=== PATIENT | male | born 1965 | race African-American/Black ===

== ENCOUNTER 2018-04-04 10:01 | Inpatient (IN) | payer SELFPAY ==
[2018-04-04 11:18] LABS: ABSOLUTE BASOPHILS # (AUTO) 0.1 10^3/uL (0.0-0.2); ABSOLUTE EOSINOPHILS # (AUTO) 0.2 10^3/uL (0.0-0.6); ABSOLUTE MONOCYTES (AUTO) 0.6 10^3/uL (0.1-1.4); ABSOLUTE NEUT (AUTO) 4.7 10^3/uL (1.7-8.2); BASOPHILS % (AUTO) 1.8 % (0-2); EOSINOPHILS % (AUTO) 2.8 % (0-6); HEMATOCRIT 34.7 % (37.9-51.0); HEMOGLOBIN 11.8 g/dL (13.5-17.0); LYMPHOCYTES % (AUTO) 26.6 % (13-45); MEAN CORPUSCULAR HEMOGLOBIN 35.3 pg (27.0-33.4); MEAN CORPUSCULAR HGB CONC 34.1 g/dL (32.0-36.0); MEAN CORPUSCULAR VOLUME 104 fl (80-97); MONOCYTES % (AUTO) 7.8 % (3-13); PLATELET COUNT 191 10^3/uL (150-450); RED BLOOD COUNT 3.35 10^6/uL (4.35-5.55); RED CELL DISTRIBUTION WIDTH 13.1 % (11.5-14.0); TOTAL CELLS COUNTED % (AUTO) 100 %; WHITE BLOOD COUNT 7.7 10^3/uL (4.0-10.5)
[2018-04-04] MEDS: 1/2 NORMAL SALINE 1,000 ML IV PRN (11:29)
[2018-04-04] MEDS ORDERED: AMPICILLIN SODIUM/SULBACTAM NA 3 GM in NORMAL SALINE 100 ML IV PRN (11:30)
[2018-04-04 11:41] LABS: ALANINE AMINOTRANSFERASE 20 U/L (21-72); ALKALINE PHOSPHATASE 75 U/L (38-126); ANION GAP 10 (5-19); ASPARTATE AMINO TRANSFERASE 32 U/L (17-59); BILIRUBIN,DIRECT 0.2 mg/dL (0.0-0.4); BILIRUBIN,TOTAL 0.3 mg/dL (0.2-1.3); BLOOD UREA NITROGEN 58 mg/dL (7-20); CALCIUM 9.4 mg/dL (8.4-10.2); CARBON DIOXIDE 19 mmol/L (22-30); CHLORIDE 112 mmol/L (98-107); GLUCOSE 204 mg/dL (75-110); POTASSIUM 5.1 mmol/L (3.6-5.0); SODIUM 140.9 mmol/L (137-145); TOTAL PROTEIN 7.3 g/dL (6.3-8.2)
[2018-04-04 12:13] LABS: APPEARANCE,URINE CLEAR; BILIRUBIN,URINE NEGATIVE (NEGATIVE); COLOR,URINE STRAW; GLUCOSE, URINE >=500 mg/dL (NEGATIVE); KETONES,URINE NEGATIVE (NEGATIVE); LEUKOCYTE ESTERASE,URINE NEGATIVE (NEGATIVE); NITRITE,URINE NEGATIVE (NEGATIVE); PROTEIN,URINE NEGATIVE (NEGATIVE); URINE SPECIFIC GRAVITY 1.012; UROBILINOGEN,URINE NEGATIVE mg/dL (<2.0)
--- NOTE | 2018-04-04 15:25 | PDOC CONSULTATION ---
Consultation Consult Date: 04/04/18 Attending physician:: marcelino Consult reason:: diabetes managment History of Present Illness Admission Date/PCP: 04/04/18 10:01 TAMELA MOELLER PA-C History of Present Illness: KHOA ANTONIO is a 52 year old black male patient admitted by Dr. Alvarado Haney vascular surgeon for left foot ulcer. Patient is a known case of diabetes mellitus which is uncontrolled evidenced by hemoglobin A1c of 12.8 and at admission his blood blood sugar was 445. [facility] service is consulted to manage his diabetes. Past Medical History Cardiac Medical History: Reports: Hypertension Endocrine Medical History: Reports: Diabetes Mellitus Type 2 Psychiatric Medical History: Denies: Depression Social History Smoking Status: Current Every Day Smoker Cigarettes Packs Per Day: 1 Frequency of Alcohol Use: None Hx Recreational Drug Use: No Drugs: None Hx Prescription Drug Abuse: No - Advance Directive Resuscitation Status: Full Code Family History Family History: Reviewed & Not Pertinent Parental Family History Reviewed: Yes Children Family History Reviewed: Yes Sibling(s) Family History Reviewed.: Yes Medication/Allergy Home Medications: Glimepiride [Amaryl 4 mg Tablet] 4 mg PO BID MDD FILLED 12/27/16 04/04/18 Lisinopril [Lisinopril] 20 mg PO DAILY 04/04/18 Pioglitazone HCl [Actos 15 mg Tablet] 15 mg PO DAILY 04/04/18 Sitagliptin Phosphate [Januvia 25 mg Tablet] 25 mg PO DAILY MDD LAST FILLED IN 201604/04/18 Allergies/Adverse Reactions: No Known Allergies Allergy (Verified 06/17/15 02:33) Review of Systems Constitutional: ABSENT: chills, fever(s), headache(s), weight gain, weight loss Eyes: ABSENT: visual disturbances Ears: ABSENT: hearing changes Cardiovascular: ABSENT: chest pain, dyspnea on exertion, edema, orthropnea, palpitations Respiratory: ABSENT: cough, hemoptysis Gastrointestinal: ABSENT: abdominal pain, constipation, diarrhea, hematemesis, hematochezia, nausea, vomiting Genitourinary: ABSENT: dysuria, hematuria Musculoskeletal: ABSENT: joint swelling Integumentary: ABSENT: rash, wounds Neurological: ABSENT: abnormal gait, abnormal speech, confusion, dizziness, focal weakness, syncope Psychiatric: ABSENT: anxiety, depression, homidical ideation, suicidal ideation Endocrine: ABSENT: cold intolerance, heat intolerance, polydipsia, polyuria Hematologic/Lymphatic: ABSENT: easy bleeding, easy bruising Physical Exam Vital Signs: Temp Pulse Resp BP Pulse Ox 97.7 F 88 18 146/61 H 100 04/04/18 12:08 04/04/18 14:00 04/04/18 12:08 04/04/18 12:08 04/04/18 12:08 Intake & Output 04/03/18 04/04/18 04/05/18 06:59 06:59 06:59 Intake Total 100 Balance 100 Weight 77.27 kg General appearance: PRESENT: no acute distress Head exam: PRESENT: atraumatic Mouth exam: PRESENT: moist Neck exam: ABSENT: carotid bruit, JVD, lymphadenopathy, thyromegaly Respiratory exam: PRESENT: clear to auscultation tatiana. ABSENT: rales, rhonchi, wheezes Cardiovascular exam: PRESENT: RRR. ABSENT: diastolic murmur, rubs, systolic murmur GI/Abdominal exam: PRESENT: normal bowel sounds, soft. ABSENT: distended, guarding, mass, organolmegaly, rebound, tenderness Extremities exam: PRESENT: other - There is small deroofed blister on the left big toe Neurological exam: PRESENT: alert, awake Results Laboratory Results: 04/04/18 11:04 04/04/18 11:04 04/04/18 04/04/18 04/04/18 11:04 11:04 11:53 WBC 7.7 RBC 3.35 L Hgb 11.8 L Hct 34.7 L MCV 104 H MCH 35.3 H MCHC 34.1 RDW 13.1 Plt Count 191 Seg Neutrophils % 61.0 Lymphocytes % 26.6 Monocytes % 7.8 Eosinophils % 2.8 Basophils % 1.8 Absolute Neutrophils 4.7 Absolute Lymphocytes 2.0 Absolute Monocytes 0.6 Absolute Eosinophils 0.2 Absolute Basophils 0.1 Sodium 140.9 Potassium 5.1 H Chloride 112 H Carbon Dioxide 19 L Anion Gap 10 BUN 58 H Creatinine 3.80 H Est GFR ( Amer) 20 L Est GFR (Non-Af Amer) 17 L Glucose 204 H Calcium 9.4 Total Bilirubin 0.3 AST 32 ALT 20 L Alkaline Phosphatase 75 Total Protein 7.3 Albumin 4.0 Urine Color STRAW Urine Appearance CLEAR Urine pH 5.0 Ur Specific [place] 1.012 Urine Protein NEGATIVE Urine Glucose (UA) >=500 H Urine Ketones NEGATIVE Urine Blood NEGATIVE Urine Nitrite NEGATIVE Ur Leukocyte Esterase NEGATIVE Urine WBC (Auto) 2 Urine RBC (Auto) 0 Assessment & Plan - Diagnosis (1) Uncontrolled type 2 diabetes mellitus Is this a current diagnosis for this admission?: Yes Plan: Patient received counseling regarding the complications of diabetes mellitus and patient so advised her to comply with his medication and follow-up appointments. I will continue his home medications and I will start him on sliding scale. (2) Tobacco abuse Is this a current diagnosis for this admission?: Yes Plan: Patient counseled and encouraged to quit smoking.
[2018-04-04] MEDS ORDERED: DEXTROSE 50%-WATER 25 GM/50 ML DISP.SYRIN IV PRN ×2 (15:28)
[2018-04-04] MEDS ORDERED: DEXTROSE 40% GEL 15 GM TUBE PO PRN ×2 (15:28)
[2018-04-04] MEDS ORDERED: GLUCAGON,HUMAN RECOMB 1 MG INJ IM PRN (15:28)
[2018-04-04] MEDS ORDERED: INSULIN LISPRO 100 UNIT/ML 3 ML VIAL SUBCUT PRN (15:28)
[2018-04-04] MEDS: AMPICILLIN SODIUM/SULBACTAM NA 3 GM in NORMAL SALINE 100 ML IV SCH ×2 (17:02→23:33)
[2018-04-04] MEDS ORDERED: INSULIN GLARGINE,HUM.REC.ANLOG 300 UNIT/3 ML INSULN.PEN SUBCUT SCH (22:00)
[2018-04-05] MEDS: AMPICILLIN SODIUM/SULBACTAM NA 3 GM in NORMAL SALINE 100 ML IV SCH ×4 (05:09→23:39)
[2018-04-05] MEDS ORDERED: INSULIN GLARGINE,HUM.REC.ANLOG 300 UNIT/3 ML INSULN.PEN SUBCUT SCH (08:23)
[2018-04-05 09:58] LABS: MEAN CORPUSCULAR HEMOGLOBIN 35.8 pg (27.0-33.4); MEAN CORPUSCULAR HGB CONC 34.3 g/dL (32.0-36.0); MEAN CORPUSCULAR VOLUME 104 fl (80-97); RED BLOOD COUNT 3.37 10^6/uL (4.35-5.55); RED CELL DISTRIBUTION WIDTH 13.4 % (11.5-14.0); WHITE BLOOD COUNT 7.3 10^3/uL (4.0-10.5)
[2018-04-05 09:59] LABS: ABSOLUTE BASOPHILS # (AUTO) 0.1 10^3/uL (0.0-0.2); ABSOLUTE EOSINOPHILS # (AUTO) 0.2 10^3/uL (0.0-0.6); ABSOLUTE LYMPHOCYTES (AUTO) 1.6 10^3/uL (0.5-4.7); ABSOLUTE MONOCYTES (AUTO) 0.5 10^3/uL (0.1-1.4); BASOPHILS % (AUTO) 1.2 % (0-2); EOSINOPHILS % (AUTO) 2.5 % (0-6); LYMPHOCYTES % (AUTO) 21.2 % (13-45); MONOCYTES % (AUTO) 7.4 % (3-13); PLATELET COUNT 191 10^3/uL (150-450); SEGMENTED NEUTROPHILS % (AUTO) 67.7 % (42-78); TOTAL CELLS COUNTED % (AUTO) 100 %
[2018-04-05 10:09] LABS: ANION GAP 11 (5-19); BLOOD UREA NITROGEN 53 mg/dL (7-20); CALCIUM 9.4 mg/dL (8.4-10.2); CARBON DIOXIDE 16 mmol/L (22-30); CHLORIDE 115 mmol/L (98-107); GLUCOSE 142 mg/dL (75-110); POTASSIUM 5.7 mmol/L (3.6-5.0); SODIUM 142.3 mmol/L (137-145)
--- NOTE | 2018-04-05 10:57 | PDOC PROGRESS REPORT ---
Subjective Progress Note for:: 04/05/18 Subjective:: I seen patient sitting by the bedside. He is awake alert and oriented. He is not in pain or distress. Yesterday night he was given Lantus insulin 15 units and he develop severe hypoglycemia with blood glucose of 38. His BMP shows also stage III CKD with creatinine of 3.8 and BUN of 50. Patient is aware of his chronic kidney disease but he does not have follow-up with [facility] stack[facility]. His home medication has been reconciled. Reason For Visit: ICD 10 CODES:201.818 E10.62 I10 E11.9 Z72.0 Physical Exam Vital Signs: Temp Pulse Resp BP Pulse Ox 98.0 F 92 16 109/73 99 04/05/18 07:41 04/05/18 07:41 04/05/18 07:41 04/05/18 07:41 04/05/18 07:41 Intake & Output 04/04/18 04/05/18 04/06/18 06:59 06:59 06:59 Intake Total 637 Output Total 1075 Balance -438 Weight 75.1 kg General appearance: PRESENT: no acute distress Head exam: PRESENT: atraumatic Eye exam: PRESENT: conjunctiva pink Mouth exam: PRESENT: moist Respiratory exam: PRESENT: clear to auscultation tatiana. ABSENT: rales, rhonchi, wheezes Cardiovascular exam: PRESENT: RRR. ABSENT: diastolic murmur, rubs, systolic murmur GI/Abdominal exam: PRESENT: normal bowel sounds, soft. ABSENT: distended, guarding, mass, organolmegaly, rebound, tenderness Neurological exam: PRESENT: alert, awake, oriented to time, oriented to situation Results Laboratory Results: 04/05/18 09:00 04/05/18 09:00 04/04/18 04/04/18 04/04/18 11:04 11:04 11:53 WBC 7.7 RBC 3.35 L Hgb 11.8 L Hct 34.7 L MCV 104 H MCH 35.3 H MCHC 34.1 RDW 13.1 Plt Count 191 Seg Neutrophils % 61.0 Lymphocytes % 26.6 Monocytes % 7.8 Eosinophils % 2.8 Basophils % 1.8 Absolute Neutrophils 4.7 Absolute Lymphocytes 2.0 Absolute Monocytes 0.6 Absolute Eosinophils 0.2 Absolute Basophils 0.1 Sodium 140.9 Potassium 5.1 H Chloride 112 H Carbon Dioxide 19 L Anion Gap 10 BUN 58 H Creatinine 3.80 H Est GFR ( Amer) 20 L Est GFR (Non-Af Amer) 17 L Glucose 204 H Calcium 9.4 Total Bilirubin 0.3 AST 32 ALT 20 L Alkaline Phosphatase 75 Total Protein 7.3 Albumin 4.0 Urine Color STRAW Urine Appearance CLEAR Urine pH 5.0 Ur Specific [place] 1.012 Urine Protein NEGATIVE Urine Glucose (UA) >=500 H Urine Ketones NEGATIVE Urine Blood NEGATIVE Urine Nitrite NEGATIVE Ur Leukocyte Esterase NEGATIVE Urine WBC (Auto) 2 Urine RBC (Auto) 0 04/05/18 04/05/18 09:00 09:00 WBC 7.3 RBC 3.37 L Hgb 12.0 L Hct 35.0 L MCV 104 H MCH 35.8 H MCHC 34.3 RDW 13.4 Plt Count 191 Seg Neutrophils % 67.7 Lymphocytes % 21.2 Monocytes % 7.4 Eosinophils % 2.5 Basophils % 1.2 Absolute Neutrophils 5.0 Absolute Lymphocytes 1.6 Absolute Monocytes 0.5 Absolute Eosinophils 0.2 Absolute Basophils 0.1 Sodium 142.3 Potassium 5.7 H Chloride 115 H Carbon Dioxide 16 L Anion Gap 11 BUN 53 H Creatinine 3.40 H Est GFR ( Amer) 23 L Est GFR (Non-Af Amer) 19 L Glucose 142 H Calcium 9.4 Total Bilirubin AST ALT Alkaline Phosphatase Total Protein Albumin Urine Color Urine Appearance Urine pH Ur Specific [place] Urine Protein Urine Glucose (UA) Urine Ketones Urine Blood Urine Nitrite Ur Leukocyte Esterase Urine WBC (Auto) Urine RBC (Auto) Assessment & Plan - Diagnosis (1) Uncontrolled type 2 diabetes mellitus Is this a current diagnosis for this admission?: Yes Plan: Patient received counseling regarding the complications of diabetes mellitus and patient so advised her to comply with his medication and follow-up appointments. I will continue his home medications and I will start him on sliding scale. She will I started him on Lantus 15 units subcu since he developed severe hypoglycemia I discontinued that. (2) Tobacco abuse Is this a current diagnosis for this admission?: Yes Plan: Patient counseled and encouraged to quit smoking. (3) Chronic renal disease, stage IV Is this a current diagnosis for this admission?: Yes Plan: Patient strongly advised to avoid nephrotoxic agents especially pain medication available [id number] like naproxen and Motrin. He is also advised to have follow-up with [facility].
[2018-04-05] MEDS: PIOGLITAZONE HCL 15 MG TABLET PO SCH (10:59)
[2018-04-05] MEDS: GLIMEPIRIDE 4 MG TABLET PO SCH ×3 (10:59→18:55)
[2018-04-05] MEDS ORDERED: RINGERS SOLUTION,LACTATED 1,000 ML IV ONE (17:00)
[2018-04-05] MEDS ORDERED: PATIROMER 8.4 GM SUSP PACKET PO ONE (19:15)
--- NOTE | 2018-04-05 19:27 | PDOC CONSULTATION ---
Consultation Consult Date: 04/05/18 Attending physician:: JC NEELY Consult reason:: I was asked by Dr. Neely to see this patient because of chronic kidney disease. History of Present Illness Admission Date/PCP: 04/04/18 10:01 TAMELA MOELLER PA-C History of Present Illness: KHOA ANTONIO is a 52 year old -[place] male with history of diabetes mellitus type 2 and hypertension who was admitted by Dr. Neely because of left foot ulcer currently on IV antibiotics. Routine labs on admission shows an elevated BUN of 58 and elevated creatinine of 3.8 with estimated GFR of 20. Today he has a BUN of 53 and creatinine of 3.4 with EGFR of 23. His nurse, Rachel today was able to speak to his folder inspector Dr. Carrasquillo from [facility] and she was told that his baseline creatinine was actually 3.3 in January 2018 and prior to that was 3.7. In November 2015 he had a BUN of 27 and creatinine of 1.85 with estimated GFR 47. Apparently the patient was told that he has abnormal kidney function but has declined consultation with a parquetry layer. Today the patient's potassium is also elevated at 5.7 and his CO2 is 16. Patient has on and off leg swelling and on and off diarrhea. He denies any NSAIDs use or abuse no history of hepatitis. He states that he has diabetes mellitus type 2 for 12 years and it seems like at one point it was uncontrolled for his hemoglobin A1c was 12.8 in 2015 that was recorded here in the hospital. Currently his hemoglobin A1c is 5.7. His urinalysis showed more than 500 of glucose but no significant protein nor blood. He reports drinking a lot of fluids and not eating too much salt. He claims that he is following his diabetic diet. He does eat meats a lot including chicken turkey and other meats. He has good appetite and denies any nausea, vomiting or abnormal fatigue. He also denies any chest pains no shortness of breath. Past Medical History Cardiac Medical History: Reports: Hypertension-primary Endocrine Medical History: Reports: Diabetes Mellitus Type 2 Past Surgical History Past Surgical History: Reports: Other - Groin cyst excision Social History Information Source: Patient Lives with: Family Smoking Status: Current Every Day Smoker Cigarettes Packs Per Day: 0.7 Frequency of Alcohol Use: None Hx Recreational Drug Use: No Drugs: None Hx Prescription Drug Abuse: No - Advance Directive Resuscitation Status: Full Code Family History Family History: DM - Parents, Hypertension - Parents, Malignancy - Mother of leukemia Parental Family History Reviewed: Yes Children Family History Reviewed: Yes Sibling(s) Family History Reviewed.: Yes Medication/Allergy Home Medications: Glimepiride [Amaryl 4 mg Tablet] 4 mg PO BID MDD FILLED 12/27/16 04/04/18 Lisinopril [Lisinopril] 20 mg PO DAILY 04/04/18 Pioglitazone HCl [Actos 15 mg Tablet] 15 mg PO DAILY 04/04/18 Sitagliptin Phosphate [Januvia 25 mg Tablet] 25 mg PO DAILY MDD LAST FILLED IN 201604/04/18 Allergies/Adverse Reactions: No Known Allergies Allergy (Verified 06/17/15 02:33) Review of Systems All systems: reviewed and no additional remarkable complaints except as stated Review of Systems: Constitutional: [ABSENT: chills, fatigue, fever(s), headache(s), weight gain, weight loss] Eyes: [ABSENT: visual disturbances] Ears:[ ABSENT: hearing changes] Cardiovascular: [ABSENT: chest pain, dyspnea on exertion, orthropnea, palpitations; admits to occasional edema] Respiratory: [ABSENT: cough, dyspnea, hemoptysis] Gastrointestinal: [ABSENT: abdominal pain, constipation, hematemesis, hematochezia, nausea, vomiting; admits on and off diarrhea] Genitourinary: [ABSENT: dysuria, hematuria] Musculoskeletal: [ABSENT: joint swelling] Integumentary:[ ABSENT: rash, wounds] Neurological: [ABSENT: abnormal gait, abnormal speech, confusion, dizziness, focal weakness, numbness, syncope] Psychiatric: [ABSENT: anxiety, depression] Endocrine:[ ABSENT: cold intolerance, heat intolerance, polydipsia, polyuria] Hematologic/Lymphatic: [ABSENT: easy bleeding, easy bruising, lymphadenopathy] Physical Exam Vital Signs: Temp Pulse Resp BP Pulse Ox 98.5 F 85 12 153/65 H 96 04/05/18 15:44 04/05/18 15:44 04/05/18 15:44 04/05/18 15:44 04/05/18 15:44 Intake & Output 04/04/18 04/05/18 04/06/18 06:59 06:59 06:59 Intake Total 637 1040 Output Total 1075 400 Balance -438 640 Weight 75.1 kg Exam: General appearance: No acute distress, cooperative, well-developed, well- nourished Head exam: PRESENT: atraumatic, normocephalic Eye exam: PRESENT: Conjunctiva [place], EOMI, PERRLA. ABSENT: conjunctival injection, scleral icterus Mouth exam: PRESENT: moist, neck supple, tongue midline Neck exam: PRESENT: full ROM. ABSENT: carotid bruit, JVD, lymphadenopathy, thyromegaly Respiratory exam: PRESENT: clear to auscultation bilaterally. ABSENT: rales, rhonchi, stridor, wheezes Cardiovascular exam: PRESENT: RRR, +S1, +S2. ABSENT: systolic murmur Pulses: PRESENT: normal radial pulses, normal dorsalis pedis pulses GI/Abdominal exam: PRESENT: normal bowel sounds, soft. ABSENT: guarding, mass, tenderness Rectal exam: Deferred Extremities exam: PRESENT: full ROM. ABSENT: calf tenderness, pedal edema Musculoskeletal: PRESENT: full ROM. ABSENT: deformity Neurological exam: PRESENT: alert, Awake, Oriented to person, Oriented to place , Oriented to time, reflexes normal, CN II-XII grossly intact. ABSENT: motor sensory deficit Psychiatric exam: PRESENT: appropriate affect, normal mood. ABSENT: homicidal ideation, suicidal ideation Skin exam: PRESENT: intact, dry, warm. ABSENT: rash Results Laboratory Results: 04/05/18 09:00 04/05/18 09:00 04/05/18 04/05/18 09:00 09:00 WBC 7.3 RBC 3.37 L Hgb 12.0 L Hct 35.0 L MCV 104 H MCH 35.8 H MCHC 34.3 RDW 13.4 Plt Count 191 Seg Neutrophils % 67.7 Lymphocytes % 21.2 Monocytes % 7.4 Eosinophils % 2.5 Basophils % 1.2 Absolute Neutrophils 5.0 Absolute Lymphocytes 1.6 Absolute Monocytes 0.5 Absolute Eosinophils 0.2 Absolute Basophils 0.1 Sodium 142.3 Potassium 5.7 H Chloride 115 H Carbon Dioxide 16 L Anion Gap 11 BUN 53 H Creatinine 3.40 H Est GFR ( Amer) 23 L Est GFR (Non-Af Amer) 19 L Glucose 142 H Calcium 9.4 Assessment & Plan - Diagnosis (1) Chronic kidney disease (CKD), stage IV (severe) Is this a current diagnosis for this admission?: Yes Plan: In the background of diabetes mellitus type 2 which was previously uncontrolled and currently controlled and hypertension. This seems to be progressive for the last several years. We will send workup for complications of chronic kidney disease. I educated the patient in the presence of his and son regarding chronic kidney disease, its implications and possibly leading to end-stage renal disease requiring hemodialysis at one point. Also discussed his complications and ways to slow down progression of kidney disease. Advised adequate fluid intake and avoidance of any nephrotoxic medications including nonsteroidal anti- inflammatory medications. Advised compliance with low-salt and diabetic diet as well as low protein diet. I briefly explained what dialysis does and when it is needed to be done. Currently he does not need any renal replacement therapy to be initiated. Continue lisinopril. We will check his kidney ultrasound, phosphorus, intact PTH, 25-hydroxy vitamin D, and urine microalbumin to creatinine ratio. (2) Hyperkalemia Is this a current diagnosis for this admission?: Yes Plan: Advised low potassium diet. We will give 1 dose of [place] 16.4 gm tonight. (3) Anemia in chronic kidney disease (CKD) Is this a current diagnosis for this admission?: Yes Plan: We will check iron panel. (4) Metabolic acidosis Is this a current diagnosis for this admission?: Yes Plan: Start sodium bicarbonate 650 mg p.o. twice daily. (5) Diabetes mellitus type 2 with complications Is this a current diagnosis for this admission?: Yes Plan: Well-controlled. (6) Foot ulcer, left Is this a current diagnosis for this admission?: Yes Plan: Defer to Dr. Neely. - Notes Notes: Thank you very much for this consultation. Assessment and plan discussed with the patient and his family at bedside as well as his nurse chris. - Time Time Spent: Greater than 70 Minutes
[2018-04-05] MEDS: SODIUM BICARBONATE 650 MG TABLET PO SCH (20:34)
--- NOTE | 2018-04-06 00:38 | RADIOLOGY REPORT (SQ) ---
EXAM DESCRIPTION: US RETROPERITONEUM LIMITED COMPLETED DATE/TME: 04/05/2018 00:00 CLINICAL HISTORY: 52 years Male, CKD Comparison: None. LIMITATIONS: None. FINDINGS: Indeterminate 1.8 x 1.6 x 1.8 cm avascular complex low-attenuation exophytic lesion of the upper pole, right kidney. 12-cm right kidney, 12-cm left kidney, and urinary bladder with demonstrated bilateral ureteral jet flow appear otherwise of normal size, shape, echotexture, and vascularity. IMPRESSION: Indeterminate 1.8 cm right renal lesion; recommend multiphase contrast CT or MRI of the kidneys.
[2018-04-06] MEDS: 1/2 NORMAL SALINE 1,000 ML IV PRN (02:32)
[2018-04-06] MEDS: SODIUM BICARBONATE 650 MG TABLET PO SCH ×2 (02:32→10:46)
[2018-04-06] MEDS: AMPICILLIN SODIUM/SULBACTAM NA 3 GM in NORMAL SALINE 100 ML IV SCH ×2 (05:01→13:06)
[2018-04-06 05:52] LABS: ABSOLUTE BASOPHILS # (AUTO) 0.1 10^3/uL (0.0-0.2); ABSOLUTE EOSINOPHILS # (AUTO) 0.2 10^3/uL (0.0-0.6); ABSOLUTE LYMPHOCYTES (AUTO) 1.7 10^3/uL (0.5-4.7); ABSOLUTE MONOCYTES (AUTO) 0.5 10^3/uL (0.1-1.4); ABSOLUTE NEUT (AUTO) 3.7 10^3/uL (1.7-8.2); ABSOLUTE RETICS # 0.078 10^6/uL (0.028-0.122); BASOPHILS % (AUTO) 1.3 % (0-2); EOSINOPHILS % (AUTO) 3.8 % (0-6); HEMATOCRIT 35.8 % (37.9-51.0); HEMOGLOBIN 12.5 g/dL (13.5-17.0); MEAN CORPUSCULAR HEMOGLOBIN 35.9 pg (27.0-33.4); MEAN CORPUSCULAR HGB CONC 34.9 g/dL (32.0-36.0); MEAN CORPUSCULAR VOLUME 103 fl (80-97); PLATELET COUNT 193 10^3/uL (150-450); RED BLOOD COUNT 3.49 10^6/uL (4.35-5.55); RED CELL DISTRIBUTION WIDTH 13.3 % (11.5-14.0); RETICULOCYTE COUNT (AUTO) 2.24 % (0.66-2.85); SEGMENTED NEUTROPHILS % (AUTO) 58.9 % (42-78); TOTAL CELLS COUNTED % (AUTO) 100 %; WHITE BLOOD COUNT 6.2 10^3/uL (4.0-10.5)
[2018-04-06 06:06] LABS: ANION GAP 11 (5-19); BLOOD UREA NITROGEN 52 mg/dL (7-20); CALCIUM 9.9 mg/dL (8.4-10.2); CARBON DIOXIDE 18 mmol/L (22-30); CHLORIDE 114 mmol/L (98-107); GLUCOSE 103 mg/dL (75-110); IRON(TIBC) 98.4 ug/dL (49-181); PHOSPHORUS 4.3 mg/dL (2.5-4.5); POTASSIUM 5.6 mmol/L (3.6-5.0); SODIUM 142.8 mmol/L (137-145)
[2018-04-06 07:13] LABS: FOLATE 8.34 ng/mL (>2.76)
--- NOTE | 2018-04-06 09:03 | PDOC PROGRESS REPORT ---
Subjective Progress Note for:: 04/05/18 Subjective:: The patient is sitting out of bed having supper on the visit. No distress. He does have some anxiety about leaving the hospital as soon as possible. No significant pain. Reason For Visit: ICD 10 CODES:201.818 E10.62 I10 E11.9 Z72.0 Daily visit for this patient was hospitalized for diabetic foot ulcer on the left with infection. Physical Exam Vital Signs: Temp Pulse Resp BP Pulse Ox 98.5 F 85 12 153/65 H 96 04/05/18 15:44 04/05/18 15:44 04/05/18 15:44 04/05/18 15:44 04/05/18 15:44 Intake & Output 04/04/18 04/05/18 04/06/18 06:59 06:59 06:59 Intake Total 637 600 Output Total 1075 Balance -438 600 Weight 75.1 kg Additional comments: Constitutional: Well-developed well-nourished -Turkish gentleman, muscular build. No apparent acute distress. Eyes: Mucous membranes pink and moist, pupils equal and reactive to light. Conjunctiva normal. Cornea normal. Wears spectacles. ENT: Hearing grossly normal. External pinna normal to inspection. Teeth intact. Tongue normal to inspection. Respiratory: Normal respiratory effort. Psychiatric: Judgment, memory, insight seem normal. Mood is pleasant and appropriate. Extremities: Upper extremities show normal range of movement. Pulses present noted to the radial arteries. Capillary refill normal. No cyanosis noted. No muscle wasting noted. Lower extremities show generally normal range of movement. Left foot dressings in place and continue daily. Results Laboratory Results: 04/05/18 09:00 04/05/18 09:00 04/05/18 04/05/18 09:00 09:00 WBC 7.3 RBC 3.37 L Hgb 12.0 L Hct 35.0 L MCV 104 H MCH 35.8 H MCHC 34.3 RDW 13.4 Plt Count 191 Seg Neutrophils % 67.7 Lymphocytes % 21.2 Monocytes % 7.4 Eosinophils % 2.5 Basophils % 1.2 Absolute Neutrophils 5.0 Absolute Lymphocytes 1.6 Absolute Monocytes 0.5 Absolute Eosinophils 0.2 Absolute Basophils 0.1 Sodium 142.3 Potassium 5.7 H Chloride 115 H Carbon Dioxide 16 L Anion Gap 11 BUN 53 H Creatinine 3.40 H Est GFR ( Amer) 23 L Est GFR (Non-Af Amer) 19 L Glucose 142 H Calcium 9.4 Assessment & Plan - Diagnosis (1) Anemia in chronic kidney disease (CKD) Is this a current diagnosis for this admission?: Yes (2) Chronic kidney disease (CKD), stage IV (severe) Is this a current diagnosis for this admission?: Yes (3) Diabetes mellitus type 2 with complications Is this a current diagnosis for this admission?: Yes (4) Foot ulcer, left Is this a current diagnosis for this admission?: Yes (5) Metabolic acidosis Is this a current diagnosis for this admission?: Yes - Plan Summary Plan Summary: The patient has had a truly fortruitious hospital admission for infected foot ulcer. The foot ulcer is being treated with local wound care and IV antibiotic. His white cell count has been normal. The adjacent tissues of anemia, hypertension, chronic kidney disease stage IV acidosis have been brought to light by testing. Investigation involved calls from the nurses to the patient's primary care provider Dr. Carrasquillo. Dr. Evans's input as a professional wrestler has been vital. The patient has had a number of interventions to get him and his family to understand the severity of the situation, the real opportunity for controlling the advancing kidney failure and staving off dialysis for as long as possible. He is congratulated on having an excellent control of diabetes in the recent past. This is attested to by hemoglobin A1c of 5.7. I feel that we are really getting somewhere in terms of getting this patient established on a process to have him lift his best life on discharge. Hospitalization is still needed in order to control the above issues. Is anticipated that the patient could be discharged as early as the or
[2018-04-06] MEDS: PIOGLITAZONE HCL 15 MG TABLET PO SCH (10:39)
[2018-04-06] MEDS: GLIMEPIRIDE 4 MG TABLET PO SCH (10:39)
--- NOTE | 2018-04-06 12:10 | PDOC PROGRESS REPORT ---
Subjective Progress Note for:: 04/06/18 Subjective:: No new complaint Reason For Visit: ICD 10 CODES:201.818 E10.62 I10 E11.9 Z72.0 Physical Exam Vital Signs: Temp Pulse Resp BP Pulse Ox 98.4 F 84 12 148/61 H 98 04/06/18 07:40 04/06/18 07:40 04/06/18 07:40 04/06/18 07:40 04/06/18 07:40 Intake & Output 04/05/18 04/06/18 04/07/18 06:59 06:59 06:59 Intake Total 637 2340 Output Total 1075 1350 Balance -438 990 Weight 75.1 kg 75.2 kg General appearance: PRESENT: no acute distress Head exam: PRESENT: atraumatic Eye exam: PRESENT: conjunctiva pink Neck exam: ABSENT: carotid bruit, JVD, lymphadenopathy, thyromegaly Respiratory exam: PRESENT: clear to auscultation tatiana. ABSENT: rales, rhonchi, wheezes Cardiovascular exam: PRESENT: RRR. ABSENT: diastolic murmur, rubs, systolic murmur GI/Abdominal exam: PRESENT: normal bowel sounds, soft. ABSENT: distended, guarding, mass, organolmegaly, rebound, tenderness Extremities exam: PRESENT: other - Left foot infected ulcer Neurological exam: PRESENT: alert, awake, oriented to time, oriented to situation Psychiatric exam: PRESENT: normal mood Results Laboratory Results: 04/06/18 05:22 04/06/18 05:22 04/06/18 04/06/18 04/06/18 05:22 05:22 05:22 WBC 6.2 RBC 3.49 L Hgb 12.5 L Hct 35.8 L MCV 103 H MCH 35.9 H MCHC 34.9 RDW 13.3 Plt Count 193 Seg Neutrophils % 58.9 Lymphocytes % 28.0 Monocytes % 8.0 Eosinophils % 3.8 Basophils % 1.3 Absolute Neutrophils 3.7 Absolute Lymphocytes 1.7 Absolute Monocytes 0.5 Absolute Eosinophils 0.2 Absolute Basophils 0.1 Retic Count (auto) 2.24 Absolute Retic 0.078 Sodium 142.8 Potassium 5.6 H Chloride 114 H Carbon Dioxide 18 L Anion Gap 11 BUN 52 H Creatinine 3.27 H Est GFR ( Amer) 24 L Est GFR (Non-Af Amer) 20 L Glucose 103 Calcium 9.9 Phosphorus 4.3 Iron 98.4 TIBC 255 % Saturation 39 Ferritin 215.00 Vitamin B12 840.0 Folate 8.34 PTH Intact 87.0 H Impressions: Renal Ultrasound 04/05/18 00:00 IMPRESSION: Indeterminate 1.8 cm right renal lesion; recommend multiphase contrast CT or MRI of the kidneys. Assessment & Plan - Diagnosis (1) Infected left foot ulcer Is this a current diagnosis for this admission?: Yes Plan: Continue vancomycin. (2) Hyperkalemia Is this a current diagnosis for this admission?: Yes Plan: Management per nephrology team (3) Tobacco abuse Is this a current diagnosis for this admission?: Yes (4) Chronic renal disease, stage IV Is this a current diagnosis for this admission?: Yes (5) Controlled type 2 diabetes mellitus Is this a current diagnosis for this admission?: Yes Plan: Continue current regimen
[2018-04-06] MEDS ORDERED: SODIUM POLYSTYRENE SULFONATE 15 GM/60 ML PO ONE (12:30)
--- NOTE | 2018-04-06 14:49 | PDOC PROGRESS REPORT ---
Subjective Progress Note for:: 04/06/18 Subjective:: Patient was seen today standing up in his room. At the time he was putting his coat on because he wanted to go outside and smoke. He denied any chest pain, SOB , N/V/D/C, fevers or chills. He stated that at this time he realize the severity of his kidney disease and is ready to follow with a lead mobile developer. He also claims that after given the veltassia last night, he did not have a bowel movement until this morning. Reason For Visit: ICD 10 CODES:201.818 E10.62 I10 E11.9 Z72.0 Physical Exam Vital Signs: Temp Pulse Resp BP Pulse Ox 98.4 F 84 12 148/61 H 98 04/06/18 07:40 04/06/18 07:40 04/06/18 07:40 04/06/18 07:40 04/06/18 07:40 Intake & Output 04/05/18 04/06/18 04/07/18 06:59 06:59 06:59 Intake Total 637 2340 Output Total 1075 1350 Balance -438 990 Weight 75.1 kg 75.2 kg General appearance: PRESENT: no acute distress, well-developed, well-nourished Mouth exam: PRESENT: moist, neck supple Neck exam: PRESENT: full ROM. ABSENT: JVD, tracheal deviation Respiratory exam: PRESENT: wheezes. ABSENT: clear to auscultation tatiana, crackles , rales, rhonchi Cardiovascular exam: PRESENT: RRR, +S1, +S2 Extremities exam: ABSENT: pedal edema, tenderness, +1 edema, +2 edema Musculoskeletal exam: PRESENT: normal inspection. ABSENT: tenderness Neurological exam: PRESENT: alert, awake, oriented to person, oriented to place , oriented to time, oriented to situation Skin exam: PRESENT: dry, intact, warm Results Laboratory Results: 04/06/18 05:22 04/06/18 05:22 04/06/18 04/06/18 04/06/18 05:22 05:22 05:22 WBC 6.2 RBC 3.49 L Hgb 12.5 L Hct 35.8 L MCV 103 H MCH 35.9 H MCHC 34.9 RDW 13.3 Plt Count 193 Seg Neutrophils % 58.9 Lymphocytes % 28.0 Monocytes % 8.0 Eosinophils % 3.8 Basophils % 1.3 Absolute Neutrophils 3.7 Absolute Lymphocytes 1.7 Absolute Monocytes 0.5 Absolute Eosinophils 0.2 Absolute Basophils 0.1 Retic Count (auto) 2.24 Absolute Retic 0.078 Sodium 142.8 Potassium 5.6 H Chloride 114 H Carbon Dioxide 18 L Anion Gap 11 BUN 52 H Creatinine 3.27 H Est GFR ( Amer) 24 L Est GFR (Non-Af Amer) 20 L Glucose 103 Calcium 9.9 Phosphorus 4.3 Iron 98.4 TIBC 255 % Saturation 39 Ferritin 215.00 Vitamin B12 840.0 Folate 8.34 PTH Intact 87.0 H Impressions: Renal Ultrasound 04/05/18 00:00 IMPRESSION: Indeterminate 1.8 cm right renal lesion; recommend multiphase contrast CT or MRI of the kidneys. Assessment & Plan - Diagnosis (1) Chronic renal disease, stage IV Is this a current diagnosis for this admission?: Yes Plan: currently stable at 3.2. According to his water commissioner this is his normal creatinine. At this point and time his willing to follow up with nephrology. Will have him follow up with Dr. Evans as outpatient. An undetermined lesion was found on the right kidney. Ordering a CT with out contrast to determine what the lesion is. (2) Hyperkalemia Is this a current diagnosis for this admission?: Yes Plan: Potassium was drawn prior to his bowel movements. Retest the potassium and see if he will need some kayexelate. Unfortunately he has insurance issues and he may not be able to be on veltassia for maintenance due to the goldstein (3) Metabolic acidosis Is this a current diagnosis for this admission?: Yes Plan: improving (4) Tobacco abuse Is this a current diagnosis for this admission?: Yes (5) Foot ulcer, left Is this a current diagnosis for this admission?: Yes Plan: per Dr. Haney (6) Diabetes mellitus type 2 with complications Is this a current diagnosis for this admission?: Yes Plan: looks to be controlled with the most recent A1c of 5.7
--- NOTE | 2018-04-06 14:50 | RADIOLOGY REPORT (SQ) ---
EXAM DESCRIPTION: CT ABD/PELVIS NO ORAL OR IV COMPLETED DATE/TIME: 04/06/2018 2:33 pm REASON FOR STUDY: unknown lesion on upper pole of right kidney Z01.818 ENCOUNTER FOR OTHER PREPROCE DURAL EXAMINATION I10 ESSENTIAL (PRIMARY) HYPERTENSION E11.9 TYPE 2 DIABETES MELLITUS WITHOUT COMPL ICATIONS COMPARISON: Renal ultrasound 04/05/2018 TECHNIQUE: CT scan of the abdomen and pelvis performed without intravenous or oral contrast. Images reviewed with lung, soft tissue, and bone windows. Reconstructed coronal and sagittal MPR images revi ewed. All images stored on PACS. All CT scanners at this facility use dose modulation, iterative reconstruction, and/or weight based d osing when appropriate to reduce radiation dose to as low as reasonably achievable (ALARA). [facility]: Dose Right [facility]: CareDose [facility]: Dose Right [facility]: Teradose 4D [facility]: Smart [employer] RADIATION DOSE: CT Rad equipment meets quality standard of care and radiation dose reduction techniq ues were employed. CTDIvol: 5.2 mGy. DLP: 267 mGy-cm.mGy. LIMITATIONS: None. FINDINGS: LOWER CHEST: No significant findings. No nodules or infiltrates. NON-CONTRASTED LIVER, SPLEEN, ADRENALS: Evaluation limited by lack of IV contrast. No identified sign ificant masses. PANCREAS: No masses. No peripancreatic inflammatory changes. GALLBLADDER: No identified stones by CT criteria. No inflammatory changes to suggest cholecystitis. RIGHT KIDNEY AND URETER: There is a slightly irregular 2 cm low-density lesion in the upper pole. Th is shows density measurement of 7.5 Hounsfield units. LEFT KIDNEY AND URETER: No suspicious masses. Assessment limited by lack of IV contrast. No signifi cant calcifications. No hydronephrosis or hydroureter. AORTA AND RETROPERITONEUM: No aneurysm. No retroperitoneal masses or adenopathy. BOWEL AND PERITONEAL CAVITY: Considerable stool is present. No bowel mass is seen. APPENDIX: Normal. PELVIS, BLADDER, AND ABDOMINAL WALL:No abnormal masses. No free fluid. Bladder normal. BONES: No significant findings. OTHER: No other significant finding. IMPRESSION: There is a slightly irregular 2 cm low-density lesion in the upper pole the right kidney . Measurements suggest a cyst, but not a typical, well-circumscribed cyst. Recommend six-month foll ow-up ultrasound. COMMENT: Quality ID # [id number]: Final reports with documentation of one or more dose reduction techniques (e.g., Automated exposure control, adjustment of the mA and/or kV according to patient size, use of iterative reconstruction technique) TECHNICAL DOCUMENTATION: JOB ID: [id number] [employer]- All Rights Reserved Reading location - IP/workstation name: [email or web address]
[2018-04-06 16:14] VITALS: BP 108/64
[2018-04-06] MEDS ORDERED: CHOLECALCIFEROL (D3) 1,000 UNIT TABLET PO SCH (19:00)
--- NOTE | 2018-04-08 13:31 | DISCHARGE SUMMARY E ---
Discharge Summary NAME: KHOA ANTONIO : 1965 AGE: 52Y ADMITTED: 04/04/2018 DISCHARGED: 04/06/2018 ADMITTING DIAGNOSES: 1. Infected diabetic foot ulcer on the left. 2. Diabetes mellitus, type-2. DISCHARGE DIAGNOSES: 1. Diabetic foot ulcer on the left, improved. 2. Diabetes mellitus, type-2. 3. Chronic kidney disease, stage-IV with severe complications. HOSPITAL COURSE: The patient was admitted and underwent basic laboratory testing including CBC, liver function profile, and chemistries. The culture from his left great toe had shown multiple organisms and he was placed on sensitive antibiotics. He was placed on Augmentin. The laboratory testing was very significant in that the patient had a decreased glomerular filtration rate of 20 and appropriate accompanying acidosis. Based on this, a consultation was obtained from the hospitalist service and from nephrologists. Dr. Charles evaluated the patient and counseled him regarding renal cure. The objective being keeping dialysis or more significant interventions as far off in the future as possible. The patient's diabetic control, by surprise, is actually excellent. His hemoglobin A1c is 5.7 which suggests that he has been maintaining satisfactory blood sugar on his hospital regime. The foot infection improved. The initial edema and erythema receded completely. This was on a regime of daily cleaning with peroxide, application of Betadine, and IV antibiotics, and Unasyn. As of the , the patient had achieved maximum in-hospital benefit and will be discharged. DISCHARGE INSTRUCTIONS: Include continuation of his existing preoperative mediations. He was given a prescription for Augmentin 875 mg b.i.d. for an addition 7 days. He is to [facility] with [facility] and instructions were given for him to be seen at the [facility] on Monday the 09 of April and cared for thereafter. He will see me in office and at the [facility] in about 3 weeks. The patient is instructed regarding the necessity for careful foot care which should include cleaning with soap and water and application of Betadine to the existing ulcers of the foot. Risk of limb loss and major amputation was emphasized. Patient is counseled and congratulated regarding his diabetic control and encouraged to continue it. Patient is counseled regarding his chronic kidney disease, which he had not made known to me before this admission. I believe he understands the seriousness of it and the advantage to begin to continue to follow with a Cement Finisher as this could increase his time of needing interventions such as dialysis. PHYSICAL EXAMINATION ON ADMISSION: GENERAL: The patient is alert and oriented. Judgement, memory, insight normal. EYES: Mucous membranes pink and moist, sclerae anicteric. RESPIRATORY: Normal respiratory effort. EXTREMITIES: Upper extremities show normal function, pulses, and range of movement. Lower extremities show normal pulses and range of movement. Pulses present on the dorsal pedis, excellent capillary refill. Patient does have a dry, hard callus of the plantar surface of the left foot measuring about 3 cm across. Patient also has a diabetic foot ulcer, very superficial in appearance to the left great toe, about 2 cm across. Dry at this point from the Betadine. Discharge instructions as above. DICTATING PHYSICIAN: JC NEELY M.D. [id number] FELICITASY#: [id number] ID: [id number] JOB#: [id number] ACCT: [id number] cc:JC NEELY M.D. > MTDD
== END 2018-04-06 19:30 | disposition home or self-care (01) | DRG 638 ==
LOC: 3N 10:01 → UNDOADMIN 10:01 → 3N 11:54
PROVIDERS: ADMIT Surgery; ATTEND Surgery
DX: E11.621 Type 2 diabetes mellitus with foot ulcer (principal); E87.2 Acidosis; L97.529 Non-pressure chronic ulcer of other part of left foot with unspecified severity; N18.4 Chronic kidney disease, stage 4 (severe); E11.65 Type 2 diabetes mellitus with hyperglycemia; I10 Essential (primary) hypertension; I12.9 Hypertensive chronic kidney disease with stage 1 through stage 4 chronic kidney disease, or unspecified chronic kidney disease; E11.22 Type 2 diabetes mellitus with diabetic chronic kidney disease; F17.290 Nicotine dependence, other tobacco product, uncomplicated; E87.5 Hyperkalemia; D63.1 Anemia in chronic kidney disease; E11.649 Type 2 diabetes mellitus with hypoglycemia without coma; T38.3X5A Adverse effect of insulin and oral hypoglycemic [antidiabetic] drugs, initial encounter
CPT/HCPCS: 36415; 74176; 76775; 80048; 80076; 81001; 82306; 82607; 82728; 82746; 82962; 83036; 83540; 83550; 83970; 84100; 84132; 85025; 85045; J0295; J1815; J3490

== ENCOUNTER → 2018-04-09 | Outpatient (CLI) | payer SELFPAY ==
[2018-04-09 11:21] LABS: HEMATOCRIT 35.1 % (37.9-51.0); HEMOGLOBIN 12.1 g/dL (13.5-17.0); MEAN CORPUSCULAR HEMOGLOBIN 35.6 pg (27.0-33.4); MEAN CORPUSCULAR HGB CONC 34.4 g/dL (32.0-36.0); MEAN CORPUSCULAR VOLUME 104 fl (80-97); PLATELET COUNT 169 10^3/uL (150-450); RED BLOOD COUNT 3.39 10^6/uL (4.35-5.55); RED CELL DISTRIBUTION WIDTH 13.4 % (11.5-14.0); WHITE BLOOD COUNT 8.6 10^3/uL (4.0-10.5)
[2018-04-09 12:04] LABS: ANION GAP 12 (5-19); BLOOD UREA NITROGEN 58 mg/dL (7-20); CALCIUM 9.8 mg/dL (8.4-10.2); CARBON DIOXIDE 20 mmol/L (22-30); CHLORIDE 108 mmol/L (98-107); GLUCOSE 206 mg/dL (75-110); POTASSIUM 5.5 mmol/L (3.6-5.0); SODIUM 140.3 mmol/L (137-145)
== END ==
LOC: LAB 10:57
PROVIDERS: ATTEND Internal Medicine Endocrinology, Diabetes & Metabolism
DX: E11.49 Type 2 diabetes mellitus with other diabetic neurological complication (principal)
CPT/HCPCS: 36415; 80048; 85027

== ENCOUNTER → 2018-09-27 | Outpatient (CLI) | payer BC ==
[2018-09-27 09:52] LABS: ABSOLUTE BASOPHILS # (AUTO) 0.1 10^3/uL (0.0-0.2); ABSOLUTE EOSINOPHILS # (AUTO) 0.2 10^3/uL (0.0-0.6); ABSOLUTE LYMPHOCYTES (AUTO) 1.3 10^3/uL (0.5-4.7); ABSOLUTE MONOCYTES (AUTO) 0.7 10^3/uL (0.1-1.4); ABSOLUTE NEUT (AUTO) 5.9 10^3/uL (1.7-8.2); BASOPHILS % (AUTO) 0.7 % (0-2); HEMATOCRIT 34.3 % (37.9-51.0); HEMOGLOBIN 11.9 g/dL (13.5-17.0); LYMPHOCYTES % (AUTO) 16.7 % (13-45); MEAN CORPUSCULAR HEMOGLOBIN 35.8 pg (27.0-33.4); MEAN CORPUSCULAR HGB CONC 34.6 g/dL (32.0-36.0); MEAN CORPUSCULAR VOLUME 104 fl (80-97); MONOCYTES % (AUTO) 8.1 % (3-13); PLATELET COUNT 201 10^3/uL (150-450); RED BLOOD COUNT 3.31 10^6/uL (4.35-5.55); RED CELL DISTRIBUTION WIDTH 13.4 % (11.5-14.0); SEGMENTED NEUTROPHILS % (AUTO) 72.5 % (42-78); TOTAL CELLS COUNTED % (AUTO) 100 %; WHITE BLOOD COUNT 8.1 10^3/uL (4.0-10.5)
[2018-09-27 09:58] LABS: APPEARANCE,URINE CLEAR; BILIRUBIN,URINE NEGATIVE (NEGATIVE); COLOR,URINE YELLOW; GLUCOSE, URINE >=500 mg/dL (NEGATIVE); KETONES,URINE NEGATIVE (NEGATIVE); LEUKOCYTE ESTERASE,URINE NEGATIVE (NEGATIVE); NITRITE,URINE NEGATIVE (NEGATIVE); PROTEIN,URINE NEGATIVE (NEGATIVE); URINE SPECIFIC GRAVITY 1.011; UROBILINOGEN,URINE NEGATIVE mg/dL (<2.0)
[2018-09-27 10:18] LABS: ALBUMIN 3.9 g/dL (3.5-5.0); ANION GAP 10 (5-19); BLOOD UREA NITROGEN 39 mg/dL (7-20); CALCIUM 9.3 mg/dL (8.4-10.2); CARBON DIOXIDE 19 mmol/L (22-30); CHLORIDE 111 mmol/L (98-107); GLUCOSE 192 mg/dL (75-110); IRON(TIBC) 48.5 ug/dL (49-181); PHOSPHORUS 4.7 mg/dL (2.5-4.5); POTASSIUM 4.9 mmol/L (3.6-5.0); SODIUM 139.6 mmol/L (137-145)
[2018-09-28 10:37] LABS: CREATININE URINE 80.9 mg/dL (Not Estab.); MICROALBUMIN URINE 31.8 ug/mL (Not Estab.)
== END ==
LOC: OD 09:11
PROVIDERS: ATTEND Internal Medicine Nephrology
DX: N18.4 Chronic kidney disease, stage 4 (severe) (principal); E11.9 Type 2 diabetes mellitus without complications; I12.9 Hypertensive chronic kidney disease with stage 1 through stage 4 chronic kidney disease, or unspecified chronic kidney disease; E87.5 Hyperkalemia; E87.2 Acidosis
CPT/HCPCS: 36415; 80069; 81001; 82043; 82306; 82570; 82728; 83036; 83540; 83550; 83970; 85025

== ENCOUNTER → 2018-09-27 | Outpatient (CLI) | payer BC ==
--- NOTE | 2018-09-27 15:43 | RADIOLOGY REPORT (SQ) ---
EXAM DESCRIPTION: U/S RETROPERITON (RENAL/AORTA) COMPLETED DATE/TIME: 09/27/2018 2:22 pm REASON FOR STUDY: N18.4 CHRONIC KIDNEY DISEASE, STAGE 4 (SEVERE) N18.4 CHRONIC KIDNEY DISEASE, STAG E 4 (SEVERE) COMPARISON: CT abdomen pelvis 04/06/2018 Bilateral renal ultrasound 04/15/2018 TECHNIQUE: Dynamic and static grayscale images acquired of the kidneys and bladder and recorded on P ACS. Additional selected color Doppler and spectral images recorded. LIMITATIONS: None. FINDINGS: RIGHT KIDNEY: On the upper pole right kidney, a septated cyst is present 1.8 cm in size. This is unchanged from prior ultrasound 04/05/[address] exam 04/06/2018. Continued six-month follow- up ultrasound is recommended to document stability of this Bosniak 2 F lesion Right kidney measures 10 cm in length with grossly normal cortical thickness and echogenicity. No st ones. No hydronephrosis. LEFT KIDNEY: 10.2 cm in length. Normal echogenicity. No solid or suspicious masses. No hydronephrosi s. No calcifications. 1 cm left lower pole simple cyst. BLADDER: No masses. OTHER FINDINGS: No other significant finding. IMPRESSION: Septated cyst upper pole right kidney for which six-month follow-up ultrasound is recomm ended TECHNICAL DOCUMENTATION: JOB ID: [id number]- All Rights Reserved Reading location - IP/workstation name: [email or web address]
== END ==
LOC: RAD 13:30
PROVIDERS: ATTEND Internal Medicine Nephrology
DX: N18.4 Chronic kidney disease, stage 4 (severe) (principal); E11.9 Type 2 diabetes mellitus without complications; I12.9 Hypertensive chronic kidney disease with stage 1 through stage 4 chronic kidney disease, or unspecified chronic kidney disease; E87.5 Hyperkalemia; E87.2 Acidosis
CPT/HCPCS: 76770